=== PATIENT | male | born 1990 | race Caucasian/White ===

== ENCOUNTER 2022-05-07 15:32 | Emergency (ER) | payer OTHER ==
[2022-05-07] MEDS ORDERED: Fluorescein Opthalmic Strip ONE (16:03)
== END 2022-05-07 16:29 | disposition home or self-care (01) ==
LOC: ERS 15:32
DX: S05.02XA Injury of conjunctiva and corneal abrasion without foreign body, left eye, initial encounter (principal)
CPT/HCPCS: 99282

== ENCOUNTER 2022-12-19 10:48 | Emergency (ER) | payer OTHER ==
[2022-12-19] MEDS ORDERED: Acetaminophen 500 MG TAB ONE (12:28)
[2022-12-19] MEDS ORDERED: predniSONE 20 MG TAB ONE (12:29)
[2022-12-19] MEDS ORDERED: Morphine 4 MG/ML VIAL ONE (12:30)
== END 2022-12-19 12:50 | disposition home or self-care (01) ==
LOC: ERS 10:48
DX: R10.9 Unspecified abdominal pain (principal); I10 Essential (primary) hypertension; F17.220 Nicotine dependence, chewing tobacco, uncomplicated
CPT/HCPCS: 96372; 99283; J2270; J7512

== ENCOUNTER 2023-01-21 11:08 | Emergency (ER) | payer OTHER ==
[2023-01-21] MEDS ORDERED: predniSONE 20 MG TAB ONE (12:26)
[2023-01-21] MEDS ORDERED: HYDROcodone/Acetaminophen 10/325 mg Tablet ONE (12:26)
== END 2023-01-21 12:57 | disposition short-term general hospital (02) ==
LOC: ERS 11:08
DX: M10.9 Gout, unspecified (principal); I10 Essential (primary) hypertension; F17.220 Nicotine dependence, chewing tobacco, uncomplicated
CPT/HCPCS: J7512